=== PATIENT | female | born 1970 | race Two or more races ===

== ENCOUNTER 2017-07-09 22:34 | Inpatient (IN) | payer OTHER ==
[2017-07-08 00:15] VITALS: BP 132/74
[~2017-07-09] VITALS: Ht 160 cm; Wt 65.8 kg
[2017-07-09 23:02] LABS: BASOPHILS % (AUTO) 0.5 % (0.0-2.0); EOSINOPHILS # (AUTO) 0.1 /CMM (0.0-0.7); EOSINOPHILS % (AUTO) 1.6 % (0.0-6.0); HEMATOCRIT 37 % (33-45); HEMOGLOBIN 12.5 g/dL (11.5-14.8); LYMPHOCYTES # (AUTO) 2.4 /CMM (0.8-4.8); LYMPHOCYTES % (AUTO) 34.3 % (20.0-44.0); MEAN CORPUSCULAR HEMOGLOBIN 31 PG (26.0-33.0); MEAN CORPUSCULAR HGB CONC 34 g/dl (31.0-36.0); MEAN CORPUSCULAR VOLUME 92 fL (82-100); MONOCYTES # (AUTO) 0.3 /CMM (0.1-1.30); MONOCYTES % (AUTO) 4.7 % (2.0-12.0); NEUTROPHILS # (AUTO) 4.2 /CMM (1.8-8.9); NEUTROPHILS % (AUTO) 58.9 % (43.0-81.0); PLATELET COUNT (AUTO) 221 /CMM (150-450); RDW COEFFICIENT OF VARIATION 13.1 (11.5-15.0); WHITE BLOOD COUNT (AUTO) 7.1 K/uL (4.3-11.0)
[2017-07-09 23:12] LABS: CALCIUM, SERUM 8.6 mg/dL (8.5-10.1); CREATININE 0.7 mg/dL (0.6-1.3); POTASSIUM 3.7 mmol/L (3.5-5.1)
[2017-07-09 23:17] LABS: INR 0.96 (0.87-1.13)
[2017-07-09 23:21] LABS: TROPONIN I 0.047 ng/mL (0.00-0.056)
[2017-07-09] MEDS ORDERED: NITROGLYCERIN 0.4 MG/TAB BOTTLE ONE (23:34)
[2017-07-09] MEDS ORDERED: ASPIRIN 325 MG TABLET ONE (23:34)
[2017-07-10] VITALS (7 sets, daily range): BP systolic 112–132; BP diastolic 74–86
[2017-07-10] MEDS ORDERED: NITROGLYCERIN 0.4 MG/TAB BOTTLE SL ONE
[2017-07-10] MEDS ORDERED: ASPIRIN 325 MG TABLET PO ONE
[2017-07-10] MEDS ORDERED: ACETAMINOPHEN 325 MG TABLET PO PRN
[2017-07-10] MEDS ORDERED: ONDANSETRON HCL/PF 4 MG/2 ML VIAL IVP PRN
[2017-07-10] MEDS ORDERED: ACETAMINOPHEN ES 500 MG TABLET PO ONE
[2017-07-10] MEDS ORDERED: HYDROCODONE/APAP 5/325MG 1 EACH TABLET PO PRN
[2017-07-10] MEDS ORDERED: ACETAMINOPHEN ES 500 MG TABLET ONE
[2017-07-10] MEDS ORDERED: Z GUARD REMEDY 2 OZ OINT TP PRN
[2017-07-10] MEDS ORDERED: MAGNESIUM HYDROXIDE 30 ML UDC PO PRN
[2017-07-10] MEDS ORDERED: MAG HYDROX/AL HYDROX/SIMETH 30 ML UDC PO PRN
[2017-07-10] MEDS ORDERED: MORPHINE SULFATE INJ 2 MG/ML DISP.SYRIN IV PRN ×2 (00:30)
[2017-07-10] MEDS: IV NS 0.9% 1,000 ML IV PRN (01:04)
[2017-07-10 06:30] LABS: BASOPHILS % (AUTO) 0.4 % (0.0-2.0); EOSINOPHILS % (AUTO) 0.7 % (0.0-6.0); HEMATOCRIT 35 % (33-45); HEMOGLOBIN 11.8 g/dL (11.5-14.8); LYMPHOCYTES # (AUTO) 2.5 /CMM (0.8-4.8); LYMPHOCYTES % (AUTO) 40.7 % (20.0-44.0); MEAN CORPUSCULAR HEMOGLOBIN 31 PG (26.0-33.0); MEAN CORPUSCULAR HGB CONC 34 g/dl (31.0-36.0); MEAN CORPUSCULAR VOLUME 93 fL (82-100); MONOCYTES # (AUTO) 0.4 /CMM (0.1-1.30); MONOCYTES % (AUTO) 6.7 % (2.0-12.0); NEUTROPHILS # (AUTO) 3.2 /CMM (1.8-8.9); NEUTROPHILS % (AUTO) 51.5 % (43.0-81.0); PLATELET COUNT (AUTO) 202 /CMM (150-450); RDW COEFFICIENT OF VARIATION 13.2 (11.5-15.0); RED BLOOD CELL COUNT(AUTO) 3.77 MIL/uL (4.0-5.2); WHITE BLOOD COUNT (AUTO) 6.1 K/uL (4.3-11.0)
[2017-07-10 06:42] LABS: ALBUMIN 3.5 g/dL (3.4-5.0); BILIRUBIN,TOTAL 0.3 mg/dL (0.2-1.0); CALCIUM, SERUM 8.4 mg/dL (8.5-10.1); CREATININE 0.4 mg/dL (0.6-1.3); MAGNESIUM 1.8 mg/dL (1.8-2.4); PHOSPHORUS 3.1 mg/dL (2.5-4.9); POTASSIUM 3.8 mmol/L (3.5-5.1); TOTAL PROTEIN, SERUM 6.3 g/dL (6.4-8.2)
[2017-07-10 06:47] LABS: TROPONIN I 0.147 ng/mL (0.00-0.056)
[2017-07-10 08:28] LABS: THYROID STIMULATING HORMONE 1.035 uIU/mL (0.358-3.74)
[2017-07-10] MEDS: ATORVASTATIN 40 MG TABLET PO SCH (08:30)
[2017-07-10] MEDS: ASPIRIN 81 MG TAB.CHEW PO SCH (08:30)
[2017-07-10] MEDS: ENOXAPARIN SODIUM 60 MG/0.6 ML DISP.SYRIN SQ SCH ×2 (08:36→21:22)
[2017-07-10] MEDS ORDERED: ASPI-1169 PO (10:17)
[2017-07-10] MEDS ORDERED: ATOR40TA PO (10:17)
[2017-07-10] MEDS ORDERED: METO50TA16 PO (10:17)
[2017-07-10] MEDS: METOPROLOL TARTRATE 50 MG TABLET PO SCH ×2 (12:06→17:57)
[2017-07-11] VITALS: BP_SYST 117; BP_SYST 125; BP_DIAS 70; BP_DIAS 76
[2017-07-11] MEDS: METOPROLOL TARTRATE 50 MG TABLET PO SCH ×3 (00:05→12:00)
[2017-07-11 04:00] VITALS: BP 110/69
[2017-07-11 07:50] LABS: BASOPHILS % (AUTO) 0.5 % (0.0-2.0); EOSINOPHILS # (AUTO) 0.1 /CMM (0.0-0.7); EOSINOPHILS % (AUTO) 1.1 % (0.0-6.0); HEMATOCRIT 37 % (33-45); HEMOGLOBIN 12.4 g/dL (11.5-14.8); LYMPHOCYTES # (AUTO) 2.4 /CMM (0.8-4.8); LYMPHOCYTES % (AUTO) 43.8 % (20.0-44.0); MEAN CORPUSCULAR HEMOGLOBIN 31 PG (26.0-33.0); MEAN CORPUSCULAR HGB CONC 34 g/dl (31.0-36.0); MEAN CORPUSCULAR VOLUME 92 fL (82-100); MONOCYTES # (AUTO) 0.4 /CMM (0.1-1.30); MONOCYTES % (AUTO) 6.4 % (2.0-12.0); NEUTROPHILS # (AUTO) 2.6 /CMM (1.8-8.9); NEUTROPHILS % (AUTO) 48.2 % (43.0-81.0); PLATELET COUNT (AUTO) 208 /CMM (150-450); RDW COEFFICIENT OF VARIATION 13.2 (11.5-15.0); RED BLOOD CELL COUNT(AUTO) 3.98 MIL/uL (4.0-5.2); WHITE BLOOD COUNT (AUTO) 5.4 K/uL (4.3-11.0)
[2017-07-11 08:00] VITALS: BP 107/61
[2017-07-11 08:12] LABS: ALBUMIN 3.5 g/dL (3.4-5.0); BILIRUBIN,TOTAL 0.4 mg/dL (0.2-1.0); CALCIUM, SERUM 8.6 mg/dL (8.5-10.1); CREATININE 0.4 mg/dL (0.6-1.3); MAGNESIUM 2.1 mg/dL (1.8-2.4); PHOSPHORUS 3.3 mg/dL (2.5-4.9); TOTAL PROTEIN, SERUM 6.3 g/dL (6.4-8.2)
[2017-07-11 08:13] LABS: TROPONIN I 0.024 ng/mL (0.00-0.056)
[2017-07-11] MEDS: IV NS 0.9% 1,000 ML IV PRN (08:43)
[2017-07-11] MEDS: ASPIRIN 81 MG TAB.CHEW PO SCH (09:00)
[2017-07-11] MEDS: ATORVASTATIN 40 MG TABLET PO SCH (09:00)
[2017-07-11] MEDS ORDERED: ENOXAPARIN SODIUM 40 MG/0.4 ML DISP.SYRIN SQ SCH (09:30)
[2017-07-11 12:00] VITALS: BP 129/79
== END 2017-07-11 15:35 | disposition short-term general hospital (02) | DRG 190 ==
LOC: ER 22:38 → TELE 23:51
PROVIDERS: ADMIT Nurse Practitioner Acute Care; ATTEND Nurse Practitioner Acute Care
DX: I21.4 Non-ST elevation (NSTEMI) myocardial infarction (principal); N17.0 Acute kidney failure with tubular necrosis; F17.210 Nicotine dependence, cigarettes, uncomplicated; G89.29 Other chronic pain; I10 Essential (primary) hypertension; Z82.49 Family history of ischemic heart disease and other diseases of the circulatory system; R73.9 Hyperglycemia, unspecified
CPT/HCPCS: 36415; 71010-TC; 80048-TC; 80053-TC; 80061-TC; 82728-TC; 83540-TC; 83735-TC; 84100-TC; 84439-TC; 84443-TC; 84484-TC; 85025-TC; 85730-TC; 87081-TC; 93307-TC; 93970-TC; J1650; J2270; J7030